=== PATIENT | male | born 1935 | race African-American/Black ===

== ENCOUNTER 2016-09-03 14:27 | Inpatient (IN) | payer MEDICARE, OTHER ==
--- NOTE | ~2016-09-03 | CN ---
Consultation Report [facility] [address] [place]. [address] NAME: VENU SOLORIO : 35 STATUS : ADM Celestino PAT#: [id number] AGE: 81 ADM/REG DATE : 09/03/16 MR#: [id number] REPORT SERV DATE: 09/04/16 DICTATED BY: JOVANI CLEARY DATE: 09/04/16 REPORT STATUS : Draft TRANSCRIBED BY: MODL DATE: 09/04/16 CONSULTATION. DATE OF CONSULTATION: 09/03/2016 REASON FOR CONSULTATION: Urinary tract infection. OTHER INVOLVED PHYSICIANS: 1. Dr. Alton Becerril. 2. Dr. Jem Rodriguez. IMPRESSION: 1. Urinary tract infection. 2. Diarrhea. These are acute problems caused his hospitalization. 3. Metastatic castrate-resistant prostate cancer. He has been on as described below. 4. Normal renal bladder ultrasound. 5. Baseline renal function with a creatinine of 1.5. RECOMMENDATIONS: 1. Treat the urinary tract infection. 2. Hospice. The patient's life expectancy is very short, and he has actually survived much longer than what has statistically been expected for his cancer. 3. Continued the Xtandi which is 160 mg p.o. daily per the patient's wishes. DISCUSSION: Mr. Solorio is an 81-year-old male, who was admitted to the hospital with altered mental status and suspected urinary tract infection. He has been started on broad-spectrum antibiotics. He had diarrhea at this point. He is feeling a bit better. He is in the clinical decision unit presently. The patient was first diagnosed with prostate cancer in 2003. At the time of diagnosis, his PSA was 18, and he was approximately 69 years old with diabetes, peripheral neuropathy, and generalized immobility from obesity. His prostate cancer management has included; he was started on androgen deprivation therapy in the form of Lupron in 2003. He did well with very little clinical disease until 2013 when his PSA began to rise rapidly. The patient was restaged at that time and was noted to have bony metastases. He was then started on Xtandi in the in 2013. At that time, Xtandi was started. His PSA was 28. His PSA declined indicating a decent response to Xtandi. He has remained on this. However, he is clinically progressed with a symptomatic bony metastases in his spine. He received some palliative radiotherapy to the spine in the last several months. He has discussed. His PSA is rising. In his this most recent check, it was 38 in 06/2016. He has had a consultation with Dr. Rodriguez, a medical oncologist, for cytotoxic chemotherapy. He is now received this, and in general, he is a very poor candidate for that. At this point, I have discussed hospice with him. He does not feel he is ready for that, although clearly he is heading in that direction. Consultation Report [place] [id number] [place]. [address] NAME: VENU SOLORIO : 35 STATUS : ADM Celestino PAT#: [id number] AGE: 81 ADM/REG DATE : 09/03/16 MR#: [id number] REPORT SERV DATE: 09/04/16 DICTATED BY: JOVANI CLEARY DATE: 09/04/16 REPORT STATUS : Draft TRANSCRIBED BY: CORINA DATE: 09/04/16 PAST MEDICAL HISTORY: Includes diabetes, obesity, arthritis, and immobility. PHYSICAL EXAMINATION: GENERAL: Shows a well-developed, well-nourished male. He is resting comfortably. Awaken easily. He is alert and oriented. He remembers me. He is unable to walk. HEENT: Sclerae anicteric. NECK: Supple. ABDOMEN: Soft and nontender. GENITOURINARY: The bladder is not distended. He is sitting in a full of a liquid stool. EXTREMITIES: His lower extremities are large with swelling and edema. STUDIES: Renal and bladder ultrasound are normal. Serum creatinine 1.5. White blood cell count 3,000. Do not have any culture results yet. PF/MODL Jovani Cleary M.D. / [id number] CC: Felix Hampton Jr, MD R. Henry Williams, M.D.
--- NOTE | ~2016-09-03 | IDS ---
Interim Discharge Summary [facility] [address] [place]. [address] NAME: VENU SOLORIO : 35 STATUS : ADM IN PAT#: [id number] AGE: 81 ADM/REG DATE : 09/05/16 MR#: [id number] REPORT SERV DATE: 09/07/16 DICTATED BY: RAVINDRA MOSLEY DATE: 09/07/16 REPORT STATUS : Draft TRANSCRIBED BY: MODL DATE: 09/07/16 ADMISSION DATE: 09/03/2016 DISCHARGE DATE: DATE OF DISCHARGE: Unknown. DATE OF INTERIM NOTE: 09/07/2016. INTERIM DIAGNOSES: 1. Urinary tract infection with hematuria, positive Proteus. 2. Acute encephalopathy, improving. 3. Metastatic prostate cancer with pancytopenia. 4. Debility. 5. Chronic kidney disease, stage 3. CONSULTATIONS: 1. Urology, Dr. Santoro, 09/04/2016. 2. Oncology, Dr. Rodriguez, 09/04/2016. IMAGIN. CT brain, 09/03/2016. Impression, generalized atrophy. No acute infarct or bleed. No evidence of metastatic disease to the bony calvarium noted. 2. Chest x-ray, 09/03/2016. Impression, stable chest x-ray. 3. Chest x-ray, 09/04/2016. Stable cardiomegaly with right basilar consolidation. 4. Renal ultrasound, 09/04/2016. Negative renal ultrasound. Limited by generous bile gas obscuring visualization. LABORATORY DATA: Urine culture approximately 75,000, positive Proteus mirabilis. WBCs 3.4, hemoglobin 10.9, hematocrit 34.2, platelet count is 138. Creatinine is 1.44, BUN is 17. COURSE OF HOSPITAL STAY: Please refer to history and physical dictated by Dr. Damian Malloy on 09/03/2016 for complete admission details as well as consultation notes by Dr. Santoro and Dr. Rodriguez. This patient is an 81-year-old male, who presented in [facility]'s Emergency Room with complaints of increased confusion and hematuria. He also presents with a history of metastatic prostate cancer and recent chemotherapy. 1. Urinary tract infection with hematuria, positive Proteus. The patient was admitted to the hospital. Cultures were obtained. The patient does present with a history of chronic urinary tract infection. Urine culture did return 75,000 Proteus due to the patient's urinary tract infection history. Rocephin at that time was discontinued and changed to ampicillin. The patient did have slight blood-tinged urine at this time per Urology. Aspirin and heparin were discontinued stating due to limited life expectancy, this was unwarranted. 2. Acute encephalopathy. The patient was confused upon admission, this is his clearing at this time. Imaging of the brain as noted above. The patient is now aware of name, Interim Discharge Summary [address] [address] NAME: VENU SOLORIO : 35 STATUS : ADM IN [facility]#: [id number] AGE: 81 ADM/REG DATE : 09/05/16 MR#: [id number] REPORT SERV DATE: 09/07/16 DICTATED BY: RAVINDRA MOSLEY DATE: 09/07/16 REPORT STATUS : Draft TRANSCRIBED BY: CORINA DATE: 09/07/16 place, date, and time. He does still have some periods of confusion. 3. Metastatic prostate cancer with pancytopenia. The patient is followed by Dr. Rodriguez and Dr. Santoro, both have been following the patient upon admission, both physicians again have also discussed limited life expectancy. He is hospice appropriate, but at this time, the patient has continued to refuse. 4. Debility. PT eval has been completed. The patient is a two person assist. The patient will need to be discharged either to usp facility or long-term care. clinical assessment manager is working with patient at this time. 5. Chronic kidney disease, stage 3. The patient has remained stable during his stay. Creatinine at this time is 1.44, this is again remained stable. clinical assessment manager is working with patient regarding discharge planning. At this time, the patient will be discharged either to a usp facility or long-term care. The patient has refused hospice. The patient will be followed by Dr. Caden Hayes. [facility]/MODL Ravindra Mosley NP / [id number] CC: Adán Mccormack MD
--- NOTE | ~2016-09-03 | HP ---
History And Physical [place] [id number] [facility] [place]. [address] NAME: VENU SOLORIO : 35 STATUS : ADM Celestino PAT#: [id number] AGE: 81 ADM/REG DATE : 09/03/16 MR#: [id number] REPORT SERV DATE: 09/04/16 DICTATED BY: KIMBER STEEL DATE: 09/03/16 REPORT STATUS : Draft TRANSCRIBED BY: MODL DATE: 09/03/16 DATE OF ADMISSION: 09/03/2016 CHIEF COMPLAINT: An 81-year-old male with metastatic prostate cancer and recent chemotherapy, now presenting with confusion and hematuria. HISTORY OF PRESENT ILLNESS: The patient's history was obtained through careful interview with the patient, coupled with [facility]. The patient last completed chemotherapy a week prior to this admission. He has longstanding metastatic prostate cancer since [address] Rodriguez and Dr. Santoro, Urologist. He states that the day after chemotherapy (08/28/2016) he began to feel abnormally weak. He has still been able to ambulate with a walker but sometimes feels as if he might fall. He has had no nausea or vomiting. He has had a good appetite. He does admit to feeling "foggy headed" and the family had noted confusion, lethargy, incoherence, and difficulty forming sentences. He has felt thirsty. No lightheadedness. No shortness of breath. No fevers or chills. He has no pain complaints at all. No leg pain. No chest pain. No back pain. No abdominal pain. No headache. He did not notice any particular urine symptoms. He has not noticed blood in his urine. He has no dysuria, and he denies urinary frequency. REVIEW OF SYSTEMS: Otherwise, complete review of systems was obtained and was negative. PAST MEDICAL HISTORY: 1. Metastatic prostate cancer to the spine, diagnosed first in 1999 on chemotherapy. He states he has never had radiation or surgery. He is followed by Dr. Santoro and Dr. Rodriguez, oncologist. 2. Diabetes, but most recent hemoglobin A1c of just 6.7, 04/2016. 3. Chronic kidney disease, stage III. Baseline creatinine of about 1.4 to 1.5. 4. Hypertension. 5. DVT in the . He has been off blood thinner for several years because of bleeding issues. 6. Gastroesophageal reflux disorder. 7. Hypertension. 8. Coronary artery disease, status post stent placement. 9. Neuropathy. 10.Decubitus ulcer. 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 12.Colon polyps, seen by Dr. Deleon. 13.Urinary tract infection. History And Physical [address] [place]. [address] NAME: VENU SOLORIO : 35 STATUS : ADM Celestino PAT#: [id number] AGE: 81 ADM/REG DATE : 09/03/16 MR#: [id number] REPORT SERV DATE: 09/04/16 DICTATED BY: KIMBER STEEL DATE: 09/03/16 REPORT STATUS : Draft TRANSCRIBED BY: CORINA DATE: 09/03/16 14.Extremity ulcers with cellulitis, previously with Serratia and evidence of peripheral arterial disease. 15.Obstructive sleep apnea, but noncompliant with CPAP. 16.Presumptive diastolic congestive heart failure with cor pulmonale. 17.Previous pneumonia. PAST SURGICAL HISTORY: 1. Cholecystectomy. 2. Left finger amputation. ALLERGIES: NO KNOWN DRUG ALLERGIES. SOCIAL HISTORY: Quit smoking. No alcohol use. Has been a for more than 7 years. He ambulates with a walker. He lives with his daughters. FAMILY HISTORY: Diabetes, stroke, heart disease, tuberculosis, and cancer. CURRENT MEDICATIONS: Include aspirin 81 mg p.o. daily, baclofen 10 mg p.o. b.i.d., diltiazem CD 360 mg p.o. daily, Lasix 40 mg p.o. daily, Neurontin 400 mg p.o. t.i.d., Prilosec 20 mg p.o. daily, OxyContin 10 mg p.o. 12 hours, Percocet p.r.n., Protonix 40 mg p.o. daily, potassium 10 mEq p.o. daily, Flomax 0.4 mg p.o. daily, and Topamax 50 mg p.o. daily. PHYSICAL EXAMINATION: VITAL SIGNS: Temperature 97.4, pulse 67, blood pressure 157/70, respiratory rate 10, and O2 saturation 100% on 2 L nasal cannula. GENERAL: An ill-appearing male with no evidence of distress. He does appear incoherent and lethargic and obviously confused, very slow in his responses. HEENT: Pupils equal, round, and reactive to light. No conjunctival pallor. No scleral icterus. Nares are patent. Oropharynx is clear of obstruction. Mildly dry mucous membranes. NECK: Trachea midline. No thyromegaly. LYMPH: No cervical lymphadenopathy. No supraclavicular lymphadenopathy. RESPIRATORY: The patient does have scattered crackles on examination. No overt wet rales. No upper respiratory rhonchi. No wheezes. The patient has a nonlabored respiratory effort. CARDIOVASCULAR: Regular rate and rhythm. No murmurs, rubs, or gallops. The patient has chronic appearing lower extremity edema that is nonpitting, symmetrical, and extends up to about the thighs. ABDOMEN: The patient has a central pattern of morbid obesity but has a completely nontender benign abdomen. No appreciable distention. Active bowel tones are noted. The patient has no hepatosplenomegaly. DERMATOLOGICAL: Warm and dry extremities, no pallor, no cyanosis. Chronic stasis dermatitis of his lower extremities. PSYCHIATRIC: Very lethargic but he is aroused to focal stimuli. He is poorly oriented to details of time. He is oriented to location and seems fairly well oriented to his recent history. LABORATORY DATA: White blood cell count 3.6, hemoglobin 12, hematocrit 38, and platelets History And Physical [address] [address] NAME: VENU SOLORIO : 35 STATUS : ADM Celestino PAT#: [id number] AGE: 81 ADM/REG DATE : 09/03/16 MR#: [id number] REPORT SERV DATE: 09/04/16 DICTATED BY: KIMBER STEEL DATE: 09/03/16 REPORT STATUS : Draft TRANSCRIBED BY: MODL DATE: 09/03/16 141. Sodium 141, potassium 3.9, chloride 105, bicarb 26, BUN 21, creatinine 1.76, and glucose 95. Albumin 2.8. Troponin negative. Liver enzymes within normal limits. Urinalysis shows greater than 182 red blood cells, 178 white blood cells, reported positive leukocyte esterase. CURRENT STUDIES: 1. Chest x-ray by my own evaluation shows diffuse chronic appearing infiltrates or chronic interstitial lung disease. The right seems more pronounced than the left, but this is stable when compared to x-rays from 07/2014 and 11/2014. 2. EKG by my own evaluation shows sinus rhythm, premature ventricular contractions, premature atrial contractions, left axis deviation in inferior Q-waves. 3. CT scan of the brain without contrast shows no acute intracranial process. ASSESSMENT AND PLAN: 1. Urinary tract infection with hematuria. Check urine culture. Start empiric IV antibiotics. Check renal and bladder ultrasound. Consult Dr. Santoro, urologist. 2. Acute encephalopathy. Provide supportive care. Negative CT scan of the brain is noted. 3. Metastatic prostate cancer with pancytopenia. Last chemotherapy was a week ago. Consult Dr. Rodriguez, oncologist. 4. Acute kidney injury, on chronic kidney disease, stage III. Place on IV fluids and hold Lasix for now. 5. Chronic lung disease. Follow chest x-ray. 6. Chronic congestive heart failure with lymphedema. Monitor volume status closely. Monitor BNP. KPL/MODL Kimber Steel M.D. / [id number] CC: Felix Hampton Jr, MD Patrick Foley, M.D. Edward Arrowsmith, M.D.
--- NOTE | ~2016-09-03 | DS ---
Discharge Summary [facility] [address] [place]. [address] NAME: VENU SOLORIO : 35 STATUS : DIS IN PAT#: [id number] AGE: 81 ADM/REG DATE : 09/05/16 MR#: [id number] REPORT SERV DATE: 09/15/16 DICTATED BY: DATE: REPORT STATUS : Draft TRANSCRIBED BY: MODL DATE: 09/14/16 ADMISSION DATE: 09/05/2016 DISCHARGE DATE: 09/14/2016 DISCHARGE DIAGNOSES: 1. Severe debility. 2. Acute encephalopathy. 3. UTI/hematuria, resolved. 4. Type 2 diabetes. 5. Diarrhea. 6. Metastatic prostate cancer. 7. Chronic kidney disease, stage III. 8. History of DVT. CONSULTATIONS: 1. Dr. Jovani Santoro, Urology. 2. Dr. Jem Rodriguez, [facility]. PERTINENT TESTS AND PROCEDURES: Occurring between the dates of service September 07 through 09/14/2016. 1. Venous Doppler left lower extremity. Impression technically difficult exam due to patient body habitus. No definite evidence of deep vein thrombosis, left lower extremity. HOSPITAL COURSE: Please refer to history and physical dated 09/04/[address] Damian Malloy for complete details of patient's initial presentation upon admission and health history. Also refer to consultation dated 09/04/2016, provided by Dr. Jovani Santoro. Please refer to interim discharge summary dated 09/07/2016, covering the dates of service between September 04 and provided by Sherry Mosley, nurse practitioner. Briefly, the patient is an 81-year-old, male with a history of metastatic prostate cancer and recent chemotherapy, 08/28/2016, who presented to the emergency department with confusion and hematuria. Dr. Jovani Santoro, Urology was consulted for evaluation and recommendations regarding urinary tract infection. Recommendations included treating urinary tract infection with antibiotics and then consideration of transferring service to the care of hospice. Per Urology, the patient's life expectancy is very short and he has actually survived much longer than what statistically been expected for his metastatic prostate cancer. Dr. Jem Rodriguez, [facility] was also consulted for evaluation and recommendations. The patient had new consultation office visit with Oncology on 08/11/2016, for consultation for bone lesions. Dr. Rodriguez clarified that the patient has not Discharge Summary [place] [id number] [place]. [address] NAME: VENU SOLORIO : 35 STATUS : DIS IN PAT#: [id number] AGE: 81 ADM/REG DATE : 09/05/16 MR#: [id number] REPORT SERV DATE: 09/15/16 DICTATED BY: DATE: REPORT STATUS : Draft TRANSCRIBED BY: MODL DATE: 09/14/16 undergone chemotherapy at his office as the patient originally stated. The patient has continued to receive anti-glutamate and androgen deprivation injections per Dr. Santoro. Oncology also agreed with Urology's recommendations to discuss with the patient and family the transition to hospice care in light of very poor prognosis. Palliative Care was consulted for additional recommendations and family meeting was held on 09/11/2016, to discuss possible transition home with hospice and change of code status to Do Not Resuscitate and Do Not Intubate. The patient was present during this meeting; however, continued to have poor insight regarding health status. Family agreed that the best course of action would be to transfer patient home under the care of [facility] with / day a week family caregiver assistance. 1. Severe debility. The patient has history of severe debility over the past several years to include transfer to acute rehab without benefits and discharge home under home health care with outpatient failure to thrive. The patient also has history of frequent falls as far back as 2014 with short-term placement at [facility] for rehabilitation. Despite multiple attempts for rehabilitation, the patient has continued to suffer from severe physical debility. The patient will transfer home with [facility] today for end of life care and management of terminal phase of disease process. 2. Acute encephalopathy upon admission. The patient presented with acute toxic encephalopathy secondary to urinary tract infection. However as urine cleared and signs and symptoms of infection improved, the patient continued to remain pleasantly and transiently confused. At the time of discharge, the patient continues to have poor insight of his disease process. 3. UTI/hematuria. The patient was treated inpatient with antibiotic and last dose was 09/13/2016, 1700 hours. No additional intervention is required at this time. 4. Type 2 diabetes mellitus. The patient is on no home diabetic medications, oral or insulin, condition will be managed per [facility] upon discharge. 5. Diarrhea. Patient has presented with diarrhea since admission. Stool studies have been negative. Exact etiology is unclear. 6. Metastatic prostate cancer. This patient has been under the treatment of Dr. Santoro, urologist for many years and has received treatment with Xtandi and Lupron. Per Urology recommendations, patient's life expectancy is extremely short. Extending the Lupron will be discontinued upon transfer to hospice. 7. Chronic kidney disease, stage III. The patient's baseline creatinine is 1.4-1.5 and has remained stable over the past several days. 8. History of deep venous thrombosis. The patient was admitted to the hospital with a daily regimen of aspirin. Urology discontinued aspirin and heparin during this admission secondary to recent hematuria in setting of poor prognosis related to metastatic prostate cancer. DISCHARGE CONDITION: At the time of discharge, the patient is hemodynamically stable. DISCHARGE DIET: 2000 calorie ADA diet. DISCHARGE MEDICATIONS: Home medication list to be reconciled by [facility] physician upon discharge. Discharge Summary [address] [address] NAME: VENU SOLORIO : 35 STATUS : DIS IN PAT#: [id number] AGE: 81 ADM/REG DATE : 09/05/16 MR#: [id number] REPORT SERV DATE: 09/15/16 DICTATED BY: DATE: REPORT STATUS : Draft TRANSCRIBED BY: CORINA DATE: 09/14/16 DISCHARGE INSTRUCTIONS: All future care plans will be initiated under the direction of [facility]. Physician. JANEL/CORINA Kelsey Hunt NP-C / [id number] CC: Rj Webster M.D.
[~2016-09-03 14:27] MED LIST: ALBUTEROL5 INH; ALTACE10 MG PO; ASAB PO; AVAP150 PO; AVAPRO300 MG PO; BACDS PO; BYETTA10 SC; CALTRAT600 PO; CARDCD360 PO; CARDIZEM LA360 MG PO; CINNAMON PLUS1 EACH PO; COUMADIN4 MG PO; COUMADIN7.5 MG PO; FERRETTS325 MG PO; FISH OIL1200 MG PO; FLECTOR1.3 % TOP; FLUNISOLIDE INH; GLUCCHONDR PO; K-TABS10 MEQ PO; KLOR-CON 1010 MEQ PO; L20 PO; L40 PO; LEVEMFLXPN SC; LEVEMIR SC; LIOR10 PO; LIPOTRIAD1 CAP PO; LORT7 PO; METHOC500B PO; METHOC750B PO; MEVACOR40 MG PO; MICRO-K10 MEQ PO; NEUR400 PO; NEUR600 PO; NO LIST; NOVLOGPUMP SC; NOVOLOG SC; OMEGA 3550 MG PO; OXYCON10 PO; PERCOCET1 TA4 PO; PLAVIX PO; PRILO PO; PROAIR HFA INH; PROTONIX PO; SKELAXIN8 PO; SUPER B-C OR; T3 PO; TOPAMAX25 PO; VICODINTAB PO; VITAMIN D31000 UNIT PO; VOLTAREN1 % TOP; XARELTO20 MG PO; XTANDI 40 MG PO; [UNRECOGNIZED DRUG - CODE] TOP; [UNRECOGNIZED DRUG - OTHER] PO; [UNRECOGNIZED DRUG - OTHER] TOP
[2016-09-03 15:41] LABS: ASCORBIC ACID (UR NOT ORDER) NEG (NEG); BILIRUBIN, URINE NEGATIVE (NEG); ER URINALYSIS TAT 0 Hrs 10 Mins; KETONE, URINE NEGATIVE (NEG); LEUKOCYTE ESTERASE(NOT OR MOD (NEG); NITRITE (URINE) NEG (NEG); WBC (NOT ORDERED) (RFLEX) 178 (0-5)
[2016-09-03 15:45] LABS: BASOPHILS 0.3 %; BASOPHILS ABSOLUTE 0.01 10/3/uL (0.0-0.16); EOSINOPHILS 0.3 %; EOSINOPHILS ABSOLUTE 0.01 10/3/uL (0.0-0.53); HEMATOCRIT 37.7 % (40.0-51.0); HEMOGLOBIN 12.1 g/dL (13.6-17.8); IMMATURE GRANULOCYTES 0.3 %; IMMATURE GRANULOCYTES ABSOLUTE 0.01 10/3/uL (0.0-0.11); LYMPHOCYTES 6.7 %; LYMPHOCYTES ABSOLUTE 0.24 10/3/uL (0.67-4.30); MANUAL DIFF NO %; MEAN CORPUS HGB CONC 32.1 g/dL (32.0-36.0); MEAN CORPUSCULAR HEMOGLOB 29.3 pg (26.0-34.0); MEAN CORPUSCULAR VOLUME 91.3 fL (80-100); MEAN PLATELET VOLUME 9.3 fL (9.2-13.0); MONOCYTES 22.9 %; MONOCYTES ABSOLUTE 0.82 10/3/uL (0.21-1.20); NEUTROPHILS 69.5 %; NEUTROPHILS ABSOLUTE 2.49 10/3/uL (2.02-8.40); PLATELET COUNT 141 10/3/uL (150-400); RBC DISTRIBUTION WIDTH 14.8 % (12.0-16.0); RED CELL COUNT 4.13 10/6/uL (4.7-6.1); WHITE BLOOD CELLS 3.6 10/3/uL (4.5-10.5)
[2016-09-03 16:04] LABS: BAND NEUTROPHILS 4 %; EOSINOPHILS 1 %; EOSINOPHILS ABSOLUTE (CALC) 0.04 10/3/uL (0.0-0.53); ER DIFF TAT 0 Hrs 25 Mins; LYMPHOCYTES 8 %; LYMPHOCYTES ABSOLUTE (CALC) 0.29 10/3/uL (0.67-4.30); MONOCYTES 13 %; MONOCYTES ABSOLUTE (CALC) 0.47 10/3/uL (0.21-1.20); NEUTROPHILS ABSOLUTE (CALC) 2.81 10/3/uL (2.02-8.40); SEGMENTED NEUTROPHIL (0) 74 %; TOTAL NUCLEATED CELLS 100
[2016-09-03 16:05] LABS: PLATELET ESTIMATE SLT DEC (ADEQUATE)
[2016-09-03 16:06] LABS: ALBUMIN 2.8 G/DL (3.5-5.0); CALCIUM, SERUM 8.7 MG/DL (8.5-10.4); CHLORIDE, SERUM 105 MMOL/L (96-112); CO2 (CARBON DIOXIDE) 26 MMOL/L (24-34); CREATININE 1.76 MG/DL (0.70-1.30); GFR AFRICAN AMERICAN 41 ML/MIN (>=60); GFR NON AFRICAN AMERICAN 35 ML/MIN (>=60); GLUCOSE, SERUM 95 MG/DL (60-99); POTASSIUM, SERUM 3.9 MMOL/L (3.5-5.3); SGOT(AST) 13 U/L (5-40); SGPT(ALT) 13 U/L (5-65); SODIUM, SERUM 141 MMOL/L (135-148); TOTAL BILIRUBIN 0.5 MG/DL (0-1.2); TOTAL PROTEIN 7.5 G/DL (6.0-8.5); TROPONIN I <0.02 NG/ML (<0.05)
[2016-09-03 16:07] LABS: A/G RATIO 0.6 (0.7-1.9); ALKALINE PHOSPHATASE 69 U/L (45-117); BUN (BLOOD UREA NITROGEN) 21 MG/DL (6-23); GLOBULIN 4.7 G/DL (2.5-4.1)
[2016-09-03] MEDS ORDERED: TOPAMAX50 MG PO (18:49)
[2016-09-03] MEDS ORDERED: LIOR10 PO (18:49)
[2016-09-03] MEDS ORDERED: KLOR-CON 1010 MEQ PO (18:50)
[2016-09-03] MEDS ORDERED: PROTONIX PO (18:50)
[2016-09-03] MEDS ORDERED: PRILO PO (18:50)
[2016-09-03] MEDS ORDERED: FLOMAX4 PO (18:51)
[2016-09-03] MEDS ORDERED: ASAB PO (18:51)
[2016-09-03] MEDS ORDERED: CARDCD360 PO (18:51)
[2016-09-03] MEDS ORDERED: NEUR400 PO (18:51)
[2016-09-03] MEDS ORDERED: OXYCON10 PO (18:53)
[2016-09-03] MEDS ORDERED: PERCOCET 10/3251 TAB PO (18:54)
[2016-09-03] MEDS ORDERED: L40 PO (19:00)
[2016-09-04 04:49] LABS: INTERNATIONAL NORMAL RATI 1.1 UNITS (-); PARTIAL THROMBO TIME 31.7 SEC (22.5-37.2); PROTIME (NOT ORD) 14.5 SEC (12.0-14.5)
[2016-09-04 05:08] LABS: A/G RATIO 0.5 (0.7-1.9); ALBUMIN 2.3 G/DL (3.5-5.0); ALKALINE PHOSPHATASE 61 U/L (45-117); BUN (BLOOD UREA NITROGEN) 19 MG/DL (6-23); CALCIUM, SERUM 8.1 MG/DL (8.5-10.4); CHLORIDE, SERUM 106 MMOL/L (96-112); CO2 (CARBON DIOXIDE) 25 MMOL/L (24-34); CREATININE 1.59 MG/DL (0.70-1.30); GFR AFRICAN AMERICAN 46 ML/MIN (>=60); GFR NON AFRICAN AMERICAN 40 ML/MIN (>=60); GLOBULIN 4.3 G/DL (2.5-4.1); GLUCOSE, SERUM 86 MG/DL (60-99); POTASSIUM, SERUM 3.5 MMOL/L (3.5-5.3); SGOT(AST) 12 U/L (5-40); SGPT(ALT) 9 U/L (5-65); SODIUM, SERUM 141 MMOL/L (135-148); TOTAL BILIRUBIN 0.4 MG/DL (0-1.2); TOTAL PROTEIN 6.6 G/DL (6.0-8.5); TROPONIN I <0.02 NG/ML (<0.05)
[2016-09-04 05:21] LABS: ULTRASENSITIVE TSH 0.333 MCIU/ML (0.358-3.740)
[2016-09-04 07:57] LABS: HEMATOCRIT 36.8 % (40.0-51.0); HEMOGLOBIN 11.8 g/dL (13.6-17.8); MEAN CORPUS HGB CONC 32.1 g/dL (32.0-36.0); MEAN CORPUSCULAR HEMOGLOB 29.1 pg (26.0-34.0); MEAN CORPUSCULAR VOLUME 90.6 fL (80-100); MEAN PLATELET VOLUME 9.5 fL (9.2-13.0); PLATELET COUNT 151 10/3/uL (150-400); RBC DISTRIBUTION WIDTH 14.8 % (12.0-16.0); RED CELL COUNT 4.06 10/6/uL (4.7-6.1); WHITE BLOOD CELLS 3.1 10/3/uL (4.5-10.5)
[2016-09-04 07:58] LABS: MANUAL DIFF YES %
[2016-09-04 08:22] LABS: LYMPHOCYTES 17 %; LYMPHOCYTES ABSOLUTE (CALC) 0.53 10/3/uL (0.67-4.30); MONOCYTES 6 %; MONOCYTES ABSOLUTE (CALC) 0.19 10/3/uL (0.21-1.20); NEUTROPHILS ABSOLUTE (CALC) 2.39 10/3/uL (2.02-8.40); PLATELET ESTIMATE ADQ (ADEQUATE); RBC MORPHOLOGY NORM (NORMAL); SEGMENTED NEUTROPHIL (0) 77 %; TOTAL NUCLEATED CELLS 100
[2016-09-05 04:16] LABS: BASOPHILS 0 %; EOSINOPHILS 0 %; HEMATOCRIT 35.1 % (40.0-51.0); HEMOGLOBIN 11.1 g/dL (13.6-17.8); IMMATURE GRANULOCYTES 0.3 %; IMMATURE GRANULOCYTES ABSOLUTE 0.01 10/3/uL (0.0-0.11); LYMPHOCYTES 14.7 %; LYMPHOCYTES ABSOLUTE 0.56 10/3/uL (0.67-4.30); MEAN CORPUS HGB CONC 31.6 g/dL (32.0-36.0); MEAN CORPUSCULAR HEMOGLOB 28.3 pg (26.0-34.0); MEAN CORPUSCULAR VOLUME 89.5 fL (80-100); MEAN PLATELET VOLUME 9.5 fL (9.2-13.0); MONOCYTES 14.7 %; MONOCYTES ABSOLUTE 0.56 10/3/uL (0.21-1.20); NEUTROPHILS 70.3 %; NEUTROPHILS ABSOLUTE 2.69 10/3/uL (2.02-8.40); PLATELET COUNT 139 10/3/uL (150-400); RBC DISTRIBUTION WIDTH 15.2 % (12.0-16.0); RED CELL COUNT 3.92 10/6/uL (4.7-6.1); WHITE BLOOD CELLS 3.8 10/3/uL (4.5-10.5)
[2016-09-05 04:18] LABS: MANUAL DIFF NO %
[2016-09-05 04:32] LABS: BUN (BLOOD UREA NITROGEN) 19 MG/DL (6-23); CALCIUM, SERUM 8.3 MG/DL (8.5-10.4); CHLORIDE, SERUM 106 MMOL/L (96-112); CO2 (CARBON DIOXIDE) 23 MMOL/L (24-34); CREATININE 1.45 MG/DL (0.70-1.30); GFR AFRICAN AMERICAN 52 ML/MIN (>=60); GFR NON AFRICAN AMERICAN 45 ML/MIN (>=60); POTASSIUM, SERUM 3.4 MMOL/L (3.5-5.3); SODIUM, SERUM 139 MMOL/L (135-148)
[2016-09-05 04:34] LABS: GLUCOSE, SERUM 111 MG/DL (60-99)
[2016-09-06 05:49] LABS: BASOPHILS 0.3 %; BASOPHILS ABSOLUTE 0.01 10/3/uL (0.0-0.16); EOSINOPHILS 0.3 %; EOSINOPHILS ABSOLUTE 0.01 10/3/uL (0.0-0.53); HEMOGLOBIN 11.3 g/dL (13.6-17.8); IMMATURE GRANULOCYTES 0.6 %; IMMATURE GRANULOCYTES ABSOLUTE 0.02 10/3/uL (0.0-0.11); LYMPHOCYTES 13.8 %; MEAN CORPUS HGB CONC 32.3 g/dL (32.0-36.0); MEAN PLATELET VOLUME 9.5 fL (9.2-13.0); MONOCYTES 13.8 %; NEUTROPHILS 71.2 %; NEUTROPHILS ABSOLUTE 2.58 10/3/uL (2.02-8.40); PLATELET COUNT 137 10/3/uL (150-400); RED CELL COUNT 3.89 10/6/uL (4.7-6.1); WHITE BLOOD CELLS 3.6 10/3/uL (4.5-10.5)
[2016-09-06 05:53] LABS: MANUAL DIFF NO %
[2016-09-06 05:56] LABS: BUN (BLOOD UREA NITROGEN) 18 MG/DL (6-23); CALCIUM, SERUM 8.5 MG/DL (8.5-10.4); CHLORIDE, SERUM 107 MMOL/L (96-112); CO2 (CARBON DIOXIDE) 22 MMOL/L (24-34); CREATININE 1.37 MG/DL (0.70-1.30); GFR AFRICAN AMERICAN 56 ML/MIN (>=60); GFR NON AFRICAN AMERICAN 48 ML/MIN (>=60); GLUCOSE, SERUM 97 MG/DL (60-99); POTASSIUM, SERUM 3.4 MMOL/L (3.5-5.3); SODIUM, SERUM 140 MMOL/L (135-148)
[2016-09-07 05:19] LABS: BASOPHILS 0.6 %; BASOPHILS ABSOLUTE 0.02 10/3/uL (0.0-0.16); EOSINOPHILS 0.3 %; EOSINOPHILS ABSOLUTE 0.01 10/3/uL (0.0-0.53); HEMATOCRIT 34.2 % (40.0-51.0); HEMOGLOBIN 10.9 g/dL (13.6-17.8); IMMATURE GRANULOCYTES 0.3 %; IMMATURE GRANULOCYTES ABSOLUTE 0.01 10/3/uL (0.0-0.11); LYMPHOCYTES 18.7 %; LYMPHOCYTES ABSOLUTE 0.64 10/3/uL (0.67-4.30); MEAN CORPUS HGB CONC 31.9 g/dL (32.0-36.0); MEAN CORPUSCULAR HEMOGLOB 28.6 pg (26.0-34.0); MEAN CORPUSCULAR VOLUME 89.8 fL (80-100); MEAN PLATELET VOLUME 9.7 fL (9.2-13.0); MONOCYTES 13.4 %; MONOCYTES ABSOLUTE 0.46 10/3/uL (0.21-1.20); NEUTROPHILS 66.7 %; NEUTROPHILS ABSOLUTE 2.29 10/3/uL (2.02-8.40); PLATELET COUNT 138 10/3/uL (150-400); RED CELL COUNT 3.81 10/6/uL (4.7-6.1); WHITE BLOOD CELLS 3.4 10/3/uL (4.5-10.5)
[2016-09-07 05:22] LABS: MANUAL DIFF NO %
[2016-09-07 05:33] LABS: BUN (BLOOD UREA NITROGEN) 17 MG/DL (6-23); CALCIUM, SERUM 8.4 MG/DL (8.5-10.4); CHLORIDE, SERUM 107 MMOL/L (96-112); CREATININE 1.44 MG/DL (0.70-1.30); GFR AFRICAN AMERICAN 52 ML/MIN (>=60); GFR NON AFRICAN AMERICAN 45 ML/MIN (>=60); GLUCOSE, SERUM 102 MG/DL (60-99); POTASSIUM, SERUM 3.7 MMOL/L (3.5-5.3); SODIUM, SERUM 141 MMOL/L (135-148)
[2016-09-07 05:37] LABS: CO2 (CARBON DIOXIDE) 27 MMOL/L (24-34)
[2016-09-08 05:50] LABS: BASOPHILS 0.7 %; BASOPHILS ABSOLUTE 0.02 10/3/uL (0.0-0.16); EOSINOPHILS ABSOLUTE 0.03 10/3/uL (0.0-0.53); HEMATOCRIT 34.4 % (40.0-51.0); HEMOGLOBIN 11.2 g/dL (13.6-17.8); IMMATURE GRANULOCYTES 0.3 %; IMMATURE GRANULOCYTES ABSOLUTE 0.01 10/3/uL (0.0-0.11); LYMPHOCYTES 18.5 %; LYMPHOCYTES ABSOLUTE 0.53 10/3/uL (0.67-4.30); MEAN CORPUS HGB CONC 32.6 g/dL (32.0-36.0); MEAN CORPUSCULAR HEMOGLOB 29.2 pg (26.0-34.0); MEAN CORPUSCULAR VOLUME 89.6 fL (80-100); MEAN PLATELET VOLUME 9.7 fL (9.2-13.0); MONOCYTES ABSOLUTE 0.43 10/3/uL (0.21-1.20); NEUTROPHILS 64.5 %; NEUTROPHILS ABSOLUTE 1.85 10/3/uL (2.02-8.40); PLATELET COUNT 145 10/3/uL (150-400); RBC DISTRIBUTION WIDTH 14.7 % (12.0-16.0); RED CELL COUNT 3.84 10/6/uL (4.7-6.1); WHITE BLOOD CELLS 2.9 10/3/uL (4.5-10.5)
[2016-09-08 05:59] LABS: MANUAL DIFF NO %
[2016-09-08 06:16] LABS: BUN (BLOOD UREA NITROGEN) 18 MG/DL (6-23); CALCIUM, SERUM 8.7 MG/DL (8.5-10.4); CHLORIDE, SERUM 105 MMOL/L (96-112); CO2 (CARBON DIOXIDE) 24 MMOL/L (24-34); GFR AFRICAN AMERICAN 59 ML/MIN (>=60); GFR NON AFRICAN AMERICAN 51 ML/MIN (>=60); GLUCOSE, SERUM 101 MG/DL (60-99); POTASSIUM, SERUM 3.7 MMOL/L (3.5-5.3); SODIUM, SERUM 138 MMOL/L (135-148)
[2016-09-09 04:56] LABS: BASOPHILS 0.8 %; BASOPHILS ABSOLUTE 0.02 10/3/uL (0.0-0.16); EOSINOPHILS 0.8 %; EOSINOPHILS ABSOLUTE 0.02 10/3/uL (0.0-0.53); HEMATOCRIT 33.1 % (40.0-51.0); HEMOGLOBIN 10.9 g/dL (13.6-17.8); IMMATURE GRANULOCYTES 0.4 %; IMMATURE GRANULOCYTES ABSOLUTE 0.01 10/3/uL (0.0-0.11); LYMPHOCYTES 14.1 %; LYMPHOCYTES ABSOLUTE 0.37 10/3/uL (0.67-4.30); MANUAL DIFF NO %; MEAN CORPUS HGB CONC 32.9 g/dL (32.0-36.0); MEAN CORPUSCULAR HEMOGLOB 29.5 pg (26.0-34.0); MEAN CORPUSCULAR VOLUME 89.5 fL (80-100); MEAN PLATELET VOLUME 9.5 fL (9.2-13.0); MONOCYTES ABSOLUTE 0.42 10/3/uL (0.21-1.20); NEUTROPHILS 67.9 %; NEUTROPHILS ABSOLUTE 1.79 10/3/uL (2.02-8.40); PLATELET COUNT 145 10/3/uL (150-400); RBC DISTRIBUTION WIDTH 14.4 % (12.0-16.0); WHITE BLOOD CELLS 2.6 10/3/uL (4.5-10.5)
[2016-09-09 05:09] LABS: BUN (BLOOD UREA NITROGEN) 19 MG/DL (6-23); CALCIUM, SERUM 8.7 MG/DL (8.5-10.4); CHLORIDE, SERUM 104 MMOL/L (96-112); CO2 (CARBON DIOXIDE) 24 MMOL/L (24-34); CREATININE 1.35 MG/DL (0.70-1.30); GFR AFRICAN AMERICAN 57 ML/MIN (>=60); GFR NON AFRICAN AMERICAN 49 ML/MIN (>=60); GLUCOSE, SERUM 108 MG/DL (60-99); POTASSIUM, SERUM 3.5 MMOL/L (3.5-5.3); SODIUM, SERUM 138 MMOL/L (135-148)
[2016-09-11 05:45] LABS: BASOPHILS 0.3 %; BASOPHILS ABSOLUTE 0.01 10/3/uL (0.0-0.16); EOSINOPHILS 1.7 %; EOSINOPHILS ABSOLUTE 0.06 10/3/uL (0.0-0.53); HEMATOCRIT 34.1 % (40.0-51.0); IMMATURE GRANULOCYTES 0.6 %; IMMATURE GRANULOCYTES ABSOLUTE 0.02 10/3/uL (0.0-0.11); LYMPHOCYTES 16.5 %; LYMPHOCYTES ABSOLUTE 0.58 10/3/uL (0.67-4.30); MEAN CORPUS HGB CONC 32.3 g/dL (32.0-36.0); MEAN PLATELET VOLUME 9.9 fL (9.2-13.0); MONOCYTES 17.3 %; MONOCYTES ABSOLUTE 0.61 10/3/uL (0.21-1.20); NEUTROPHILS 63.6 %; NEUTROPHILS ABSOLUTE 2.24 10/3/uL (2.02-8.40); PLATELET COUNT 170 10/3/uL (150-400); RBC DISTRIBUTION WIDTH 14.4 % (12.0-16.0); RED CELL COUNT 3.79 10/6/uL (4.7-6.1); WHITE BLOOD CELLS 3.5 10/3/uL (4.5-10.5)
[2016-09-11 05:53] LABS: MANUAL DIFF NO %
[2016-09-11 05:58] LABS: CALCIUM, SERUM 8.9 MG/DL (8.5-10.4); CHLORIDE, SERUM 103 MMOL/L (96-112); CO2 (CARBON DIOXIDE) 26 MMOL/L (24-34); CREATININE 1.52 MG/DL (0.70-1.30); GFR AFRICAN AMERICAN 49 ML/MIN (>=60); GFR NON AFRICAN AMERICAN 42 ML/MIN (>=60); GLUCOSE, SERUM 104 MG/DL (60-99); POTASSIUM, SERUM 3.4 MMOL/L (3.5-5.3); SODIUM, SERUM 140 MMOL/L (135-148)
[2016-09-11 06:03] LABS: BUN (BLOOD UREA NITROGEN) 25 MG/DL (6-23)
[2016-09-13 06:25] LABS: HEMATOCRIT 36.4 % (40.0-51.0); HEMOGLOBIN 11.7 g/dL (13.6-17.8); MEAN CORPUS HGB CONC 32.1 g/dL (32.0-36.0); MEAN CORPUSCULAR HEMOGLOB 28.9 pg (26.0-34.0); MEAN CORPUSCULAR VOLUME 89.9 fL (80-100); MEAN PLATELET VOLUME 9.8 fL (9.2-13.0); PLATELET COUNT 162 10/3/uL (150-400); RBC DISTRIBUTION WIDTH 14.3 % (12.0-16.0); RED CELL COUNT 4.05 10/6/uL (4.7-6.1); WHITE BLOOD CELLS 3.4 10/3/uL (4.5-10.5)
[2016-09-13 06:29] LABS: MANUAL DIFF YES %
[2016-09-13 07:25] LABS: BUN (BLOOD UREA NITROGEN) 27 MG/DL (6-23); CALCIUM, SERUM 9.2 MG/DL (8.5-10.4); CHLORIDE, SERUM 103 MMOL/L (96-112); CREATININE 1.54 MG/DL (0.70-1.30); GFR AFRICAN AMERICAN 48 ML/MIN (>=60); GFR NON AFRICAN AMERICAN 42 ML/MIN (>=60); GLUCOSE, SERUM 109 MG/DL (60-99); POTASSIUM, SERUM 3.4 MMOL/L (3.5-5.3); SODIUM, SERUM 137 MMOL/L (135-148)
[2016-09-13 07:26] LABS: CO2 (CARBON DIOXIDE) 21 MMOL/L (24-34)
[2016-09-13 07:46] LABS: BAND NEUTROPHILS 1 %; EOSINOPHILS 2 %; EOSINOPHILS ABSOLUTE (CALC) 0.07 10/3/uL (0.0-0.53); LYMPHOCYTES 15 %; LYMPHOCYTES ABSOLUTE (CALC) 0.51 10/3/uL (0.67-4.30); MONOCYTES 18 %; MONOCYTES ABSOLUTE (CALC) 0.61 10/3/uL (0.21-1.20); NEUTROPHILS ABSOLUTE (CALC) 2.21 10/3/uL (2.02-8.40); PLATELET ESTIMATE ADQ (ADEQUATE); RBC MORPHOLOGY NORM (NORMAL); SEGMENTED NEUTROPHIL (0) 64 %; TOTAL NUCLEATED CELLS 100
== END 2016-09-14 14:04 | disposition home or self-care (01) | DRG 689 ==
LOC: ER 14:27 → CDU1 18:30 → 4EA 09-05 14:32
PROVIDERS: Hospitalist; Internal Medicine; Nurse Practitioner; Nurse Practitioner Adult Health; Nurse Practitioner Family
DX: N39.0 Urinary tract infection, site not specified (principal); G92 Toxic encephalopathy; N17.9 Acute kidney failure, unspecified; D61.810 Antineoplastic chemotherapy induced pancytopenia; C61 Malignant neoplasm of prostate; B96.4 Proteus (mirabilis) (morganii) as the cause of diseases classified elsewhere; N18.3 Chronic kidney disease, stage 3 (moderate); E11.9 Type 2 diabetes mellitus without complications; R31.9 Hematuria, unspecified; Z86.718 Personal history of other venous thrombosis and embolism
CPT/HCPCS: 70450; 71010; 76775; 80048; 80053; 81001; 82962; 83605; 83735; 83880; 84443; 84484; 85025; 85347; 85610; 85730; 87040; 87077; 87086; 87186; 87328; 87329; 87493; 87493-59; 89055; 93005; 93971; 97110-GP; 97163-GP; 97530-GP; 99285; A9270-GY; G8978-CL-GP; G8979-CK-GP